=== PATIENT | female | born 1975 | race African-American/Black ===

== ENCOUNTER 2017-07-07 18:04 | Emergency (ER) | payer OTHER ==
[~2017-07-07] VITALS: Ht 165.1 cm; Wt 65.8 kg
[2017-07-07 18:21] VITALS: BP 140/97
--- NOTE | 2017-07-07 19:38 | NUR ---
SENT FOR CHEST X RAY AMBULATORY, WITH INSTRUCTOR LOOPING
--- NOTE | 2017-07-07 21:00 | NUR ---
PATIENT CALLED FOR BED NO RESPONSE
--- NOTE | 2017-07-07 21:18 | NUR ---
PATIENT CALLED FOR THE SECOND TIME NO RESPONSE.PATIENT LEFT WITHOUT BEING SEEN BY DR. CHAN. NO FURTHER CARE PROVIDED FOR PATIENT.
== END 2017-07-07 21:18 | disposition left against medical advice (07) ==
LOC: MED 18:04
DX: R07.89 Other chest pain (principal); Z53.21 Procedure and treatment not carried out due to patient leaving prior to being seen by health care provider
CPT/HCPCS: 71101; 99281